=== PATIENT | male | born 2000 | race Caucasian/White ===

== ENCOUNTER 2019-03-31 00:17 | Emergency (ER) | payer OTHER ==
[~2019-03-31] VITALS: Ht 177.8 cm; Wt 72.6 kg
[2019-03-31] MEDS ORDERED: PREDNISONE 20 M20 M1 PO (00:41)
[2019-03-31] MEDS ORDERED: VENTOLIN HFA 1818 GM INH (00:41)
[2019-03-31 01:01] VITALS: BP 134/60
== END 2019-03-31 01:02 | disposition home or self-care (01) ==
LOC: M.ERS 00:17
DX: J45.901 Unspecified asthma with (acute) exacerbation (principal); F17.210 Nicotine dependence, cigarettes, uncomplicated; Z91.010 Allergy to peanuts